=== PATIENT | male | born 1965 | race Caucasian/White ===

== ENCOUNTER → 2018-11-13 | Outpatient (CLI) | payer OTHER | LOC: LAB 15:26 | PROVIDERS: ATTEND Internal Medicine Gastroenterology | DX: R94.5 Abnormal results of liver function studies (principal) | CPT/HCPCS: 36415; 81332; 82390; 86038; 86256 ==

== ENCOUNTER 2018-11-15 07:20 | Day surgery (SDC) | payer OTHER ==
[2018-11-15] MEDS ORDERED: PROPOFOL INJ 200 MG/20 ML VIAL IV ONE ×2 (07:32→08:25)
[2018-11-15 09:08] VITALS: BP 151/95
--- NOTE | 2018-11-15 12:27 | Operative Report ---
Operative Report DATE OF SURGERY: 11/15/18 Operative Report: The risks, benefits and alternatives of the procedure including the risk of bleeding, perforation requiring surgery have been explained to the patient in detail and informed consent has been obtained. The patient is taken back to the endoscopy suite and placed in the left, lateral decubital position. Timeout was called. Propofol medication is administered. Rectal examination is done which did not reveal any masses, tears or fissures. An Olympus videoscope was inserted into the patient's rectum. Scope was then advanced all the way to the cecum. Cecum was identified by the usual anatomical landmarks including the ileocecal valve as well as appendiceal office. Photodocumentation is obtained. Scope was then sequentially pulled back via the various segments of the colon including the ascending colon, hepatic flexure, transverse colon, splenic flexure, descending colon finding to the rectosigmoid portions of the colon. Retroflexion maneuvers performed. PREOPERATIVE DIAGNOSIS: Change in bowel habits POSTOPERATIVE DIAGNOSIS: Right colon inflammation status post biopsy. Diverticulosis without any evidence of diverticulitis. Internal hemorrhoids OPERATION: Colonoscopy with biopsy SURGEON: VINEET PACHECO ANESTHESIA: LMAC TISSUE REMOVED OR ALTERED: As noted above. COMPLICATIONS: None. ESTIMATED BLOOD LOSS: None. INTRAOPERATIVE FINDINGS: As noted above. PROCEDURE: Patient tolerated the procedure well. No immediate postprocedure complications are noted. Patient is discharged in good condition. Discharge date 11/15/2018. Discharge diet: Regular. Discharge activity: Regular. 2 to 3-week follow-up to discuss findings. Patient is instructed to call the office or proceed to the emergency room should there be any further problems or questions. Wait on the pathology.
== END 2018-11-15 09:11 | disposition home or self-care (01) ==
LOC: END 07:20
PROVIDERS: ATTEND Internal Medicine Gastroenterology
DX: K52.9 Noninfective gastroenteritis and colitis, unspecified (principal); K57.30 Diverticulosis of large intestine without perforation or abscess without bleeding; K64.8 Other hemorrhoids; E03.9 Hypothyroidism, unspecified; Z79.899 Other long term (current) drug therapy; R94.5 Abnormal results of liver function studies
CPT/HCPCS: 45380; 88305 ×2; 00811; J2704; 811

== ENCOUNTER 2020-02-17 18:38 | Emergency (ER) | payer OTHER ==
[2020-02-17 19:23] LABS: ABSOLUTE LYMPHOCYTES (AUTO) 1.4 10^3/uL (0.5-4.7); ABSOLUTE MONOCYTES (AUTO) 0.5 10^3/uL (0.1-1.4); ABSOLUTE NEUT (AUTO) 2.4 10^3/uL (1.7-8.2); BASOPHILS % (AUTO) 1.1 % (0-2); EOSINOPHILS % (AUTO) 0.5 % (0-6); HEMATOCRIT 40.8 % (37.9-51.0); HEMOGLOBIN 14.1 g/dL (13.5-17.0); LYMPHOCYTES % (AUTO) 32.2 % (13-45); MEAN CORPUSCULAR HEMOGLOBIN 32.4 pg (27.0-33.4); MEAN CORPUSCULAR HGB CONC 34.5 g/dL (32.0-36.0); MEAN CORPUSCULAR VOLUME 94 fl (80-97); MONOCYTES % (AUTO) 11.4 % (3-13); RED BLOOD COUNT 4.36 10^6/uL (4.35-5.55); SEGMENTED NEUTROPHILS % (AUTO) 54.8 % (42-78); TOTAL CELLS COUNTED % (AUTO) 100 %; WHITE BLOOD COUNT 4.4 10^3/uL (4.0-10.5)
[2020-02-17 19:40] LABS: ALBUMIN 4.5 g/dL (3.5-5.0); ALKALINE PHOSPHATASE 80 U/L (38-126); ANION GAP 16 (5-19); ASPARTATE AMINO TRANSFERASE 284 U/L (17-59); BILIRUBIN,DIRECT 0.4 mg/dL (0.0-0.4); BILIRUBIN,TOTAL 1.8 mg/dL (0.2-1.3); BLOOD UREA NITROGEN 14 mg/dL (7-20); CALCIUM 8.6 mg/dL (8.4-10.2); CARBON DIOXIDE 25 mmol/L (22-30); CHLORIDE 104 mmol/L (98-107); GLUCOSE 99 mg/dL (75-110); POTASSIUM 4.4 mmol/L (3.6-5.0); TOTAL PROTEIN 7.9 g/dL (6.3-8.2)
--- NOTE | 2020-02-17 19:41 | ER Document Report ---
ED General - General Chief Complaint: Psych Problem Stated Complaint: PSYCH PROBLEM Time Seen by Provider: 02/17/20 19:40 Primary Care Provider: CAMILLA TIJERINA PA-C [Primary Care Provider] - Follow up as needed TRAVEL OUTSIDE OF THE [place] IN LAST 30 DAYS: No - HPI Notes: 54-year-old male presents under IVC, taken out by his mother. There is concern for noncompliance with medications, alcohol abuse, and suicidal ideations. Apparently has access to weapons at home and is hallucinating/speaking to soldiers. Patient denies the statements made in the IVC. He states that "I was at my house doing nothing and the career technical education teacher showed up". He states that he has not drank today, he last drink yesterday, he states that he does not go through alcohol withdrawal. Patient with limited participation. - Related Data Allergies/Adverse Reactions: No Known Allergies Allergy (Verified 11/15/18 07:05) Past Medical History - General Information source: Patient - Social History Smoking Status: Never Smoker Chew tobacco use (# tins/day): No Frequency of alcohol use: Heavy Family History: Reviewed & Not Pertinent Patient has homicidal ideation: No - Past Medical History Cardiac Medical History: Denies: Hx Coronary Artery Disease, Hx Heart Attack, Hx Hypertension Pulmonary Medical History: Denies: Hx Asthma, Hx Bronchitis, Hx COPD, Hx Pneumonia Neurological Medical History: Denies: Hx Cerebrovascular Accident, Hx Seizures Musculoskeletal Medical History: Denies Hx Arthritis - Immunizations Hx Diphtheria, Pertussis, Tetanus Vaccination: Yes Review of Systems - Review of Systems Constitutional: No symptoms reported EENT: No symptoms reported Cardiovascular: No symptoms reported Respiratory: No symptoms reported Gastrointestinal: No symptoms reported Genitourinary: No symptoms reported Male Genitourinary: No symptoms reported Musculoskeletal: No symptoms reported Skin: No symptoms reported Hematologic/Lymphatic: No symptoms reported Neurological/Psychological: See HPI Physical Exam - Vital signs Vitals: Temp Pulse Resp BP Pulse Ox 99.2 F 102 H 20 133/90 H 96 02/17/20 19:07 02/17/20 19:07 02/17/20 19:07 02/17/20 19:07 02/17/20 19:07 - General General appearance: Alert In distress: None - HEENT Head: Normocephalic, Atraumatic Extraocular movements intact: Yes Pupils: PERRL - Respiratory Breath sounds: Normal - Cardiovascular Rhythm: Regular Heart sounds: Normal auscultation - Abdominal Tenderness: Nontender - Extremities General upper extremity: Normal ROM General lower extremity: Normal ROM - Neurological Neuro grossly intact: Yes Cognition: Normal Orientation: AAOx4 Notes: Ambulatory with steady gait - Psychological Associated symptoms: Agitated, Labile, Other - Appears to be responding to internal stimuli - Skin Skin Temperature: Warm Course - Re-evaluation Re-evalutation: 54-year-old male presents under IVC taken out by his mother for SI, access to weapons and concern for hallucinations. On exam patient is quite agitated and labile, he appears of poor insight into his condition, he is currently denying the statements made in the IV see. He does appear to be responding to internal stimuli as he is. When seen talking to himself while looking towards the right corner of the room. He has no gross focal neuro deficits, he is hemodynamically stable. His given age dose of Zyprexa to help with agitation as we are currently out of Haldol. Laboratory evaluation essentially significant for elevated alcohol 425. 02/18/20 00:02 Patient is much less agitated, he is now redirectable and has remained out of restraints for over an hour. Will keep in the emergency department overnight until he can be seen by behavioral health in the morning for further management of the IVC, he is medically cleared. - Vital Signs Vital signs: Temp Pulse Resp BP Pulse Ox 99.2 F 102 H 20 133/90 H 96 02/17/20 19:07 02/17/20 19:07 02/17/20 19:07 02/17/20 19:07 02/17/20 19:07 - Laboratory Results Result Diagrams: 02/17/20 19:02 02/17/20 19:02 Laboratory Results Interpreted: 02/17/20 02/17/20 02/17/20 19:02 19:02 20:33 RDW 19.0 H Plt Count 82 L Total Bilirubin 1.8 H AST 284 H ALT 152 H Urine Protein 100 H Urine Blood SMALL H Urine Urobilinogen 4.0 H Salicylates < 1.0 L Acetaminophen < 10 L Serum Alcohol 425 H* Critical Laboratory Results Reviewed: Yes Attending or Supervising Physician who Reviewed Labs: KATIANA HARRIS - Radiology Results Critical Radiology Results Reviewed: No Critical Results - EKG Interpretation by Me Additional EKG results interpreted by me: EKG is interpreted by me. Sinus tachycardia, rate 110. Narrow QRS, QTC within normal limits. Nonspecific ST abnormalities. No STEMI. Discharge - Discharge Clinical Impression: Alcohol abuse with intoxication, Involuntary commitment Disposition: OTHER Referrals: CAIMLLA TIJERINA PA-C [Primary Care Provider] - Follow up as needed
[2020-02-17 19:42] LABS: PLATELET COUNT 82 10^3/uL (150-450)
[2020-02-17 19:51] LABS: ACETAMINOPHEN < 10 ug/mL (10-30); SALICYLATE < 1.0 mg/dL (2.0-20.0)
[2020-02-17 19:52] LABS: ALCOHOL 425 mg/dL (NONE DETECTED)
[2020-02-17] MEDS ORDERED: DIAZEPAM 5 MG TABLET PO ONE (19:52)
[2020-02-17] MEDS ORDERED: OLANZAPINE INJ/PF 10 MG SDV IM ONE (20:03)
[2020-02-17 20:41] LABS: FREE T4 (FREE THYROXINE) 0.97 ng/dL (0.78-2.19)
[2020-02-17 20:52] LABS: APPEARANCE,URINE CLEAR; BILIRUBIN,URINE NEGATIVE (NEGATIVE); COLOR,URINE YELLOW; GLUCOSE, URINE NEGATIVE (NEGATIVE); KETONES,URINE NEGATIVE (NEGATIVE); LEUKOCYTE ESTERASE,URINE NEGATIVE (NEGATIVE); NITRITE,URINE NEGATIVE (NEGATIVE); PROTEIN,URINE 100 mg/dL (NEGATIVE); URINE SPECIFIC GRAVITY 1.013
[2020-02-17 20:55] LABS: THYROID STIMULATING HORMONE 3.62 uIU/mL (0.47-4.68)
[2020-02-17 21:05] LABS: URINE AMPHETAMINES SCREEN NEGATIVE; URINE BARBITURATES SCREEN NEGATIVE; URINE COCAINE SCREEN NEGATIVE; URINE MARIJUANA (THC) SCREEN NEGATIVE; URINE METHADONE SCREEN NEGATIVE; URINE PHENCYCLIDINE SCREEN NEGATIVE
[2020-02-17 21:14] LABS: URINE BENZODIAZEPINES SCREEN UNCONFIRMED POSITIVE
[2020-02-17] MEDS ORDERED: LORAZEPAM INJ 2 MG/1 ML VIAL IM ONE (21:42)
[2020-02-18] MEDS ORDERED: MELATONIN 5 MG TABLET PO ONE (00:11)
--- NOTE | 2020-02-18 00:44 | EKG REPORT ---
SEVERITY:- BORDERLINE ECG - SINUS TACHYCARDIA BORDERLINE T ABNORMALITIES, LATERAL LEADS : Confirmed by: Traci Silva 18-Feb-2020 00:43:16
--- NOTE | 2020-02-18 15:20 | ER Document Report ---
Doctor's Note Notes: 02/18/20 15:10 Patient is cleared from psychiatric services. They are rescinding IVC paperwork as he does not meet criteria with passive SI while intoxicated with alcohol. [facility] and the patient has an appointment next month. Resources provided for alcohol abuse and outpatient treatment. Mother informed and she is onboard with the plan and will come pick up operator the patient. Patient evaluated and he has no complaints at this time, including chest pain and shortness of breath. PHYSICAL EXAMINATION: GENERAL: Well-appearing, well-nourished and in no acute distress. HEAD: Atraumatic, normocephalic. EYES: sclera anicteric, conjunctiva are normal. ENT: Moist mucous membranes. NECK: Normal range of motion LUNGS: Normal work of breathing HEART: 2+ radial pulses bilaterally EXTREMITIES: no pitting or edema. No cyanosis. NEUROLOGICAL: No focal neurological deficits. Moves all extremities spon taneously and on command. Ambulating without difficulty. PSYCH: Normal mood, normal affect. SKIN: Warm, Dry, normal turgor, no rashes or lesions noted. Patient understands and is in agreement with the plan set by psych. Patient is clinically sober at this time and safe for discharge. Patient is cleared both medically and by psych. Patient will be discharged home.
[2020-02-18 15:57] VITALS: BP 160/88
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
== END 2020-02-18 15:56 | disposition home or self-care (01) ==
LOC: ER 18:38
DX: Z04.6 Encounter for general psychiatric examination, requested by authority (principal); F10.229 Alcohol dependence with intoxication, unspecified; Y90.8 Blood alcohol level of 240 mg/100 ml or more; R45.851 Suicidal ideations; R45.1 Restlessness and agitation; F43.10 Post-traumatic stress disorder, unspecified; E03.9 Hypothyroidism, unspecified; G47.00 Insomnia, unspecified; Z79.899 Other long term (current) drug therapy; Z78.1 Physical restraint status
CPT/HCPCS: 93005; 99285; 96372; 36415; 84439; 80307 ×4; 84443; 85025; 80053; 81001; 93010; J2060; J3490

== ENCOUNTER 2020-03-03 00:13 | Inpatient (IN) | payer OTHER ==
[2020-03-03] MEDS ORDERED: LORAZEPAM INJ 2 MG/1 ML VIAL IV ONE ×2 (00:23→03:54)
--- NOTE | 2020-03-03 00:28 | ER Document Report ---
ED General - General Chief Complaint: Seizure Stated Complaint: Alcohol withdrawal, seizure Time Seen by Provider: 03/03/20 00:18 Notes: Patient is a 54-year-old male who comes in the emergency department for chief complaint of a seizure that happened just prior to arrival. This happened for an unknown duration, patient states his mom called EMS. EMS noted patient to be postictal but patient had completed seizing by then. Patient denies ever having a seizure in the past. Patient states he did stop drinking alcohol 1.5 days ago, he states he has been having nausea, sweating, and bad tremors today. Patient takes an antidepressant and medication for insomnia, denies any other medical history. Patient denies recreational drugs or substance abuse other than heavy alcohol use. TRAVEL OUTSIDE OF THE [place] IN LAST 30 DAYS: No - Related Data Allergies/Adverse Reactions: No Known Allergies Allergy (Verified 11/15/18 07:05) Past Medical History - General Information source: Patient - Social History Smoking Status: Current Every Day Smoker Frequency of alcohol use: Heavy Drug Abuse: None Lives with: Parents Family History: Reviewed & Not Pertinent - Past Medical History Cardiac Medical History: Denies: Hx Coronary Artery Disease, Hx Heart Attack, Hx Hypertension Pulmonary Medical History: Denies: Hx Asthma, Hx Bronchitis, Hx COPD, Hx Pneumonia Neurological Medical History: Denies: Hx Cerebrovascular Accident, Hx Seizures Musculoskeletal Medical History: Denies Hx Arthritis Psychiatric Medical History: Reports: Hx Anxiety, Hx Depression - Immunizations Hx Diphtheria, Pertussis, Tetanus Vaccination: Yes Review of Systems - Review of Systems Constitutional: See HPI EENT: No symptoms reported Cardiovascular: No symptoms reported Respiratory: No symptoms reported Gastrointestinal: See HPI Genitourinary: No symptoms reported Male Genitourinary: No symptoms reported Musculoskeletal: See HPI Skin: No symptoms reported Hematologic/Lymphatic: No symptoms reported Neurological/Psychological: See HPI Physical Exam - Vital signs Vitals: Temp BP Pulse Ox 99.4 F 138/95 H 95 03/03/20 00:21 03/03/20 00:21 03/03/20 00:21 - Notes Notes: GENERAL: Alert, interacts well. Somewhat unwell appearing but does not appear to be in distress HEAD: Normocephalic, atraumatic. EYES: Pupils equal, round, and reactive to light. Extraocular movements intact. ENT: Oral mucosa moist, tongue midline. There appears to be injury to the right distal aspect of the tongue consistent with bruising/tiny amount of dried blood. Oropharynx unremarkable. Airway patent. NECK: Full range of motion. Supple. Trachea midline. No lymphadenopathy. LUNGS: Clear to auscultation bilaterally, no wheezes, rales, or rhonchi. No respiratory distress. Non-tender chest wall. HEART: Regular rate and rhythm. No murmur ABDOMEN: Soft, non-tender. Non-distended. Bowel sounds present in all 4 quadrants. GENITOURINARY: Deferred EXTREMITIES: Moves all 4 extremities spontaneously. No edema, normal radial and dorsalis pedis pulses bilaterally. No cyanosis. BACK: no cervical, thoracic, lumbar midline tenderness. No saddle anesthesia, normal distal neurovascular exam. Moves all extremities in full range of motion. NEUROLOGICAL: Alert and oriented x3. Shaky speech. Patient very tremulous in both lips and extremities. Cranial nerves II through XII grossly intact. Strength 5/5 in all extremities. PSYCH: Slightly anxious but cooperative SKIN: Pale and slightly diaphoretic Course - Re-evaluation Re-evalutation: 03/03/20 00:26 Patient is very tremulous on exam, patient has injury to the right distal aspect of the tongue consistent with injury during a tonic-clonic seizure, patient is not postictal now but was reported to be so by EMS. Placing on monitoring, placing seizure precautions, giving Ativan, work-up pending. 03/03/20 00:51 Patient significantly improved after 2 mg IV Ativan, tremors have stopped, he is conversational and awake but resting comfortably. CBC shows leukopenia, thrombocytopenia. Chemistry shows elevated LFTs but borderline lipase and borderline bilirubin. Abdomen is nontender on my exam. CT of the head unremarkable. Alcohol negative. Drug screen still pending. Sodium in the 130s. I reevaluated patient. Patient started become tremulous again. I spoke with patient. Patient states that he wants to perform detox, he states he is trying to get clean for his girlfriend, he states that he would be interested in being placed in detox. However I am concerned because patient had a seizure, we called and spoke with [facility], they state they will not accept patient who has had a seizure from alcohol withdrawals until they have been free of this at least 24 hours. Patient has been discussed with Dr. Arthur. Discussed with hospitalist for admission. Patient states full agreement with the plan. I discussed with Dr. Haile, patient accepted to [facility]. - Vital Signs Vital signs: Temp Pulse Resp BP Pulse Ox 100.9 F H 101 H 20 130/84 H 98 03/03/20 05:26 03/03/20 05:26 03/03/20 05:26 03/03/20 05:26 03/03/20 05:26 - Laboratory Results Result Diagrams: 03/03/20 00:45 03/03/20 00:45 Laboratory Results Interpreted: 03/03/20 03/03/20 00:45 00:45 WBC 2.3 L RDW 18.1 H Plt Count 85 L Seg Neuts % (Manual) 80 H Lymphocytes % (Manual) 7 L Abs Lymphs (Manual) 0.2 L Sodium 136.3 L Glucose 146 H Total Bilirubin 1.5 H Direct Bilirubin 0.5 H AST 434 H ALT 199 H Lipase 500.0 H Critical Laboratory Results Reviewed: No Critical Results - Radiology Results Critical Radiology Results Reviewed: No Critical Results - EKG Interpretation by Me Additional EKG results interpreted by me: EKG shows sinus rhythm at a rate of 98, normal axis, flattened T waves laterally but no T wave inversions ST segment changes in consecutive leads. QTc 476. Discharge - Discharge Clinical Impression: Seizure, Coarse tremors Alcohol withdrawal Qualifiers: Complication of substance-induced condition: with unspecified complication Qualified Code(s): F10.239 - Alcohol dependence with withdrawal, unspecified Condition: Fair Disposition: ADMITTED INPATIENT Admitting Provider: Unit Admitted: [facility]
[2020-03-03 01:00] LABS: HEMATOCRIT 42.3 % (37.9-51.0); HEMOGLOBIN 14.8 g/dL (13.5-17.0); MEAN CORPUSCULAR HEMOGLOBIN 32.8 pg (27.0-33.4); MEAN CORPUSCULAR HGB CONC 34.9 g/dL (32.0-36.0); MEAN CORPUSCULAR VOLUME 94 fl (80-97); RED CELL DISTRIBUTION WIDTH 18.1 % (11.5-14.0); WHITE BLOOD COUNT 2.3 10^3/uL (4.0-10.5)
[2020-03-03 01:04] LABS: PLATELET COUNT 85 10^3/uL (150-450)
[2020-03-03 01:18] LABS: ABSOLUTE LYMPHOCYTES# (MANUAL) 0.2 10^3/uL (0.5-4.7); ABSOLUTE MONOCYTES # (MANUAL) 0.3 10^3/uL (0.1-1.4); BASOPHILS % (MANUAL) 0 % (0-2); EOSINOPHILS % (MANUAL) 0 % (0-6); LYMPHOCYTES % (MANUAL) 7 % (13-45); MONOCYTES % (MANUAL) 12 % (3-13); SEGMENTED NEUTROPHILS % (MAN) 80 % (42-78); TOTAL CELLS COUNTED 100
[2020-03-03 01:20] LABS: ANISOCYTOSIS 2+; PLATELET COMMENT DECREASED; TOXIC VACUOLATION PRESENT
[2020-03-03 01:21] LABS: ALBUMIN 4.1 g/dL (3.5-5.0); ALKALINE PHOSPHATASE 114 U/L (38-126); ANION GAP 11 (5-19); ASPARTATE AMINO TRANSFERASE 434 U/L (17-59); BILIRUBIN,DIRECT 0.5 mg/dL (0.0-0.4); BILIRUBIN,TOTAL 1.5 mg/dL (0.2-1.3); BLOOD UREA NITROGEN 13 mg/dL (7-20); CALCIUM 9.1 mg/dL (8.4-10.2); CARBON DIOXIDE 25 mmol/L (22-30); CHLORIDE 100 mmol/L (98-107); GLUCOSE 146 mg/dL (75-110); POTASSIUM 4.1 mmol/L (3.6-5.0); TOTAL PROTEIN 7.7 g/dL (6.3-8.2)
[2020-03-03 01:27] LABS: ALCOHOL < 10 mg/dL (NONE DETECTED)
--- NOTE | 2020-03-03 01:53 | RADIOLOGY REPORT (SQ) ---
CLINICAL HISTORY: 1st time seizure; Heavy drinker stopped drinking appx 1.5 days ago COMPARISON: None. TECHNIQUE: CT HEAD WITHOUT IV CONTRAST on 03/03/2020 12:23 AM DRAPERY CUTTER This exam was performed according to our departmental dose-optimization program, which includes automated exposure control, adjustment of the mA and/or kV according to patient size and/or use of iterative reconstruction technique. FINDINGS: There is no acute hemorrhage, mass effect or midline shift. Gee-white differentiation is preserved. There is no hydrocephalus. There is no significant volume loss for age. The calvarium is intact. Orbits and globes are unremarkable. There is mild thickening of the left maxillary sinus. Mastoid air cells are clear. IMPRESSION: No acute intracranial findings.
[2020-03-03] MEDS ORDERED: THIAMINE HCL 100 MG in NORMAL SALINE 50 ML IV ONE (04:41)
--- NOTE | 2020-03-03 04:58 | RADIOLOGY REPORT (SQ) ---
EXAM DESCRIPTION: XR CHEST 1 VIEW COMPLETED DATE/TME: 03/03/2020 04:18 CLINICAL HISTORY: 54 years, Male, post seizure COMPARISON: None. NUMBER OF VIEWS: 1 TECHNIQUE: Portable chest LIMITATIONS: None. FINDINGS: The heart size is normal. Lungs are clear. No pneumothorax. Postsurgical change of the cervical spine IMPRESSION: No acute cardiopulmonary process copyright 2011 [employer]- All Rights Reserved
[2020-03-03 05:00] LABS: APPEARANCE,URINE SLIGHTLY-CLOUDY; BILIRUBIN,URINE NEGATIVE (NEGATIVE); GLUCOSE, URINE NEGATIVE (NEGATIVE); KETONES,URINE TRACE mg/dL (NEGATIVE); LEUKOCYTE ESTERASE,URINE NEGATIVE (NEGATIVE); NITRITE,URINE NEGATIVE (NEGATIVE); PROTEIN,URINE 100 mg/dL (NEGATIVE); URINE SPECIFIC GRAVITY 1.026
[2020-03-03 05:00] LABS: INTERNATIONAL RATION (INR) 1.03; PROTHROMBIN TIME 13.7 SEC (11.4-15.4)
[2020-03-03 05:05] LABS: COLOR,URINE DARK YELLOW
[2020-03-03 05:09] LABS: URINE AMPHETAMINES SCREEN NEGATIVE; URINE BARBITURATES SCREEN NEGATIVE; URINE COCAINE SCREEN NEGATIVE; URINE MARIJUANA (THC) SCREEN NEGATIVE; URINE METHADONE SCREEN NEGATIVE; URINE PHENCYCLIDINE SCREEN NEGATIVE
[2020-03-03] MEDS ORDERED: THIAMINE HCL INJ 200 MG/2 ML VIAL ONE (05:09)
[2020-03-03 05:19] LABS: URINE BENZODIAZEPINES SCREEN UNCONFIRMED POSITIVE
[2020-03-03] MEDS: LORAZEPAM 1 MG TABLET PO SCH ×3 (05:46→21:32)
--- NOTE | 2020-03-03 05:58 | PDOC H&P ---
History of Present Illness Admission Date/PCP: 03/03/20 04:07 Patient complains of: Tonic-clonic seizure History of Present Illness: DAMARIS BUTCHER is a 54 year old male The patient is suffering from severe alcohol abuse disorder. He has previous history of alcohol withdrawal but he never had seizures. He drinks beer and vodka, significant amount daily. He decided to stop drinking about 1-1/2-day ago. He experienced a seizure at home which was witnessed. He was watching TV while it happened. Patient was brought in by EMS. He had no other seizure act ivity. He was slightly agitated and very tremulous, received intravenous lorazepam. When I saw him he appeared to be slightly agitated but he was cooperative, he had significant tremor. He had sinus tachycardia. The patient has liver cirrhosis, most likely secondary to alcohol abuse. He gets easily annoyed by questions though he was cooperating. He did not have any significant abdominal pain but he may had some earlier. Past Medical History Cardiac Medical History: Reports: None Denies: Coronary Artery Disease, Myocardial Infarction, Hypertension Pulmonary Medical History: Reports: None Denies: Asthma, Bronchitis, Chronic Obstructive Pulmonary Disease (COPD), Pneumonia EENT Medical History: Reports: None Neurological Medical History: Reports: None Denies: Seizures Endocrine Medical History: Reports: None Renal/ Medical History: Reports: None GI Medical History: Reports: Cirrhosis Musculoskeltal Medical History: Denies: Arthritis Skin Medical History: Reports: None Psychiatric Medical History: Reports: Depression Traumatic Medical History: Reports: None Hematology: Reports: None Denies: Anemia Infectious Medical History: Reports: None Past Surgical History Past Surgical History: Reports: Herniorrhaphy, Other - Cervical spine surgery, knee surgery Social History Information Source: Patient Lives with: Parents Smoking Status: Current Every Day Smoker Electronic Cigarette use?: No Frequency of Alcohol Use: Heavy Hx Recreational Drug Use: No Drugs: None - Advance Directive Resuscitation Status: Full Code Family History Family History: Malignancy Parental Family History Reviewed: Yes Children Family History Reviewed: Yes Sibling(s) Family History Reviewed.: Yes - His mother has some form of cancer metastatic to bone. Medication/Allergy Home Medications: Testosterone Cypionate 1 dose IM .QWEEKLY 11/15/18 Trazodone HCl 150 mg PO QHS 11/15/18 Allergies/Adverse Reactions: No Known Allergies Allergy (Verified 11/15/18 07:05) Review of Systems Constitutional: PRESENT: weakness Eyes: ABSENT: visual disturbances Ears: ABSENT: hearing changes Cardiovascular: ABSENT: chest pain, dyspnea on exertion, edema, orthropnea, palpitations Respiratory: ABSENT: cough, hemoptysis Gastrointestinal: PRESENT: abdominal pain - Some vague abdominal pain earlier. ABSENT: coffee ground emesis, heartburn, nausea, vomiting Genitourinary: ABSENT: dysuria, hematuria Musculoskeletal: ABSENT: joint swelling Integumentary: ABSENT: rash, wounds Neurological: PRESENT: convulsions, tremor(s) Psychiatric: ABSENT: hallucinations, homidical ideation, suicidal ideation Physical Exam Vital Signs: Temp Pulse Resp BP Pulse Ox 99.4 F 16 129/95 H 96 03/03/20 00:21 03/03/20 04:30 03/03/20 04:15 03/03/20 04:30 Intake & Output 03/01/20 03/02/20 03/03/20 06:59 06:59 06:59 Weight 104.326 kg General appearance: PRESENT: mild distress Head exam: PRESENT: atraumatic, normocephalic Eye exam: PRESENT: conjunctiva pink, EOMI, PERRLA. ABSENT: scleral icterus Ear exam: PRESENT: normal external ear exam Mouth exam: PRESENT: other - Bite geovany on the right lateral side of his tongue Throat exam: ABSENT: post pharyngeal erythema Neck exam: ABSENT: carotid bruit, JVD, lymphadenopathy, thyromegaly Respiratory exam: PRESENT: clear to auscultation martin. ABSENT: rales, rhonchi, wheezes Cardiovascular exam: PRESENT: clicks, tachycardia - Heart rate in the 100-110 range, sinus tachycardia Pulses: PRESENT: normal dorsalis pedis pul Vascular exam: PRESENT: normal capillary refill GI/Abdominal exam: PRESENT: normal bowel sounds, soft. ABSENT: distended, guarding, mass, organolmegaly, rebound, tenderness Rectal exam: PRESENT: deferred Extremities exam: PRESENT: full ROM. ABSENT: calf tenderness, clubbing, pedal edema Musculoskeletal exam: PRESENT: ambulatory Neurological exam: PRESENT: alert, awake, oriented to person, oriented to place, oriented to time, oriented to situation Psychiatric exam: PRESENT: agitated - Slightly agitated but still cooperative, anxious Skin exam: PRESENT: dry, intact, warm. ABSENT: cyanosis, rash Results Laboratory Results: 03/03/20 00:45 03/03/20 00:45 03/03/20 03/03/20 03/03/20 00:45 00:45 04:15 WBC 2.3 L RBC 4.50 Hgb 14.8 Hct 42.3 MCV 94 MCH 32.8 MCHC 34.9 RDW 18.1 H Plt Count 85 L Seg Neutrophils % Not Reportable Sodium 136.3 L Potassium 4.1 Chloride 100 Carbon Dioxide 25 Anion Gap 11 BUN 13 Creatinine 0.78 Est GFR ( Amer) > 60 Glucose 146 H Calcium 9.1 Magnesium 1.7 Total Bilirubin 1.5 H AST 434 H Alkaline Phosphatase 114 Total Protein 7.7 Albumin 4.1 Lipase 500.0 H Urine Color DARK YELLOW Urine Appearance SLIGHTLY-CLOUDY Urine pH 6.0 Ur Specific [place] 1.026 Urine Protein 100 H Urine Glucose (UA) NEGATIVE Urine Ketones TRACE H Urine Blood SMALL H Urine Nitrite NEGATIVE Ur Leukocyte Esterase NEGATIVE Urine WBC (Auto) 1 Urine RBC (Auto) 4 Impressions: Head CT 03/03/20 00:23 IMPRESSION: No acute intracranial findings. Chest X-Ray 03/03/20 03:59 IMPRESSION: No acute cardiopulmonary process copyright 2011 [employer]- All Rights Reserved Assessment and Plan - Diagnosis (1) Seizure Is this a current diagnosis for this admission?: Yes Plan: The patient had a seizure, he does not remember. This is an alcohol withdrawal seizure. No antiseizure medication was started at this point. CT scan of the head is unremarkable. Continue benzodiazepines. (2) Alcohol withdrawal Qualifiers: Complication of substance-induced condition: with unspecified complication Qualified Code(s): F10.239 - Alcohol dependence with withdrawal, unspecified Is this a current diagnosis for this admission?: Yes Plan: He had an alcohol withdrawal seizure, now he has significant tremor, anxiety, mild agitation. He is not hallucinating. He has sinus tachycardia. His blood pressure is stable. He is going to be admitted to intermediate care unit because of alcohol withdrawal. He is going to be treated with lorazepam regularly scheduled and as needed. Thiamine. (3) Cirrhosis of liver Qualifiers: Hepatic cirrhosis type: alcoholic cirrhosis Ascites presence: without ascites Qualified Code(s): K70.30 - Alcoholic cirrhosis of liver without ascites Is this a current diagnosis for this admission?: Yes Plan: We do not have a definite proof but most likely has alcoholic cirrhosis. CT scan of the abdomen and pelvis going to be done this morning. He does not have any coagulopathy but he is thrombocytopenic and neutropenic. Because of thrombocytopenia DVT prophylaxis with compression device. (4) Thrombocytopenia Is this a current diagnosis for this admission?: Yes Plan: Most likely secondary to liver cirrhosis. Monitor platelet count. (5) Leukopenia Qualifiers: Leukopenia type: unspecified Qualified Code(s): D72.819 - Decreased white blood cell count, unspecified Is this a current diagnosis for this admission?: Yes Plan: Monitor CBC. Most likely due to liver cirrhosis. Check HIV serology. (7) Abdominal pain Qualifiers: Abdominal location: generalized Qualified Code(s): R10.84 - Generalized abdominal pain Is this a current diagnosis for this admission?: Yes Plan: He had earlier some abdominal pain but now he is pain-free. Abdominal exam is unremarkable. He has mild elevated lipase. I do not believe he has any significant pancreatitis. CT scan of the abdomen and pelvis in the morning. Recheck lipase. - Plan Summary Summary: Patient was admitted to intermediate care unit after a seizure which was most likely alcohol withdrawal seizure. He has alcohol withdrawal symptoms. He is still cooperative. - Time Time Spent with patient: 35 or more minutes Medications reviewed and adjusted accordingly: Yes Anticipated Discharge Disposition: Home, Self Care Anticipated Discharge Timeframe: within 72 hours - Inpatient Certification Based on my medical assessment, after consideration of the patient's comorbidities, presenting symptoms, or acuity I expect that the services needed warrant INPATIENT care.: Yes I certify that my determination is in accordance with my understanding of Medicare's requirements for reasonable and necessary INPATIENT services [42 CFR 412.3e].: Yes Medical Necessity: Failure to Improve With Outpatient Therapy, Need Close Monitoring Due to Risk of Patient Decompensation, Need for Neurological Checks
--- NOTE | 2020-03-03 07:21 | EKG REPORT ---
SEVERITY:- ABNORMAL ECG - SINUS RHYTHM FIRST DEGREE AV BLOCK NONSPECIFIC T ABNORMALITIES, LATERAL LEADS : Confirmed by: Jaya Patterson MD 03-Mar-2020 07:19:24
[2020-03-03] MEDS: ACETAMINOPHEN 325 MG TABLET PO PRN (08:46)
--- NOTE | 2020-03-03 12:21 | RADIOLOGY REPORT (SQ) ---
EXAM DESCRIPTION: CT ABD/PELVIS WITH IV ORAL IMAGES COMPLETED DATE/TIME: 03/03/2020 9:29 am REASON FOR STUDY: elevated lipase, cirrhosis. Patient reports no pain. Prior appendectomy. COMPARISON: None. TECHNIQUE: CT scan of the abdomen and pelvis performed using helical scanning technique with dynamic intravenous contrast injection. No oral contrast. Images reviewed with lung, soft tissue, and bone windows. Reconstructed coronal and sagittal MPR images reviewed. Delayed images for evaluation of the urinary system also acquired. All images stored on PACS. All CT scanners at this facility use dose modulation, iterative reconstruction, and/or weight based d osing when appropriate to reduce radiation dose to as low as reasonably achievable (ALARA). [facility]: Dose Right [facility]: CareDose [facility]: Dose Right [facility]: Teradose 4D [facility]: eFolder CONTRAST TYPE AND DOSE: contrast/concentration: Isovue 350.00 mmol/ml; Total Contrast Delivered: 100 .0 ml; Total Saline Delivered: 72.0 ml RENAL FUNCTION: GFR > 60. RADIATION DOSE: CT Rad equipment meets quality standard of care and radiation dose reduction techniq ues were employed. CTDIvol: 13.0 mGy. DLP: 1447 mGy-cm.. LIMITATIONS: None. FINDINGS: LOWER CHEST: There are patchy ground-glass and solid nodules in the medial right lower lob e which may represent rounded atelectasis or developing infectious/ inflammatory process. Ill-define d patchy opacities at the right lung base, also possibly infectious/ inflammatory versus atelectasis. LIVER: The liver has normal size and contour. There is severe diffuse hepatic steatosis. No focal h epatic mass. Hepatic and portal veins are patent. No biliary ductal dilation. SPLEEN: Normal size. No focal lesions. PANCREAS: No masses. No significant calcifications. No adjacent inflammation or peripancreatic fluid collections. Pancreatic duct not dilated. GALLBLADDER: Gallbladder is contracted. No calcified gallstones or intraluminal debris. No gallblad venice wall thickening or pericholecystic fluid. ADRENAL GLANDS: No significant masses or asymmetry. RIGHT KIDNEY AND URETER: No solid masses. No significant calcifications. No hydronephrosis or hyd roureter. LEFT KIDNEY AND URETER: No solid masses. No significant calcifications. No hydronephrosis or hydr oureter. AORTA AND VESSELS: No aneurysm. No dissection. Renal arteries, SMA, celiac without stenosis. RETROPERITONEUM: No retroperitoneal adenopathy, hemorrhage or masses. BOWEL AND PERITONEAL CAVITY: There is colonic diverticulosis without evidence of diverticulitis. No bowel obstruction. No bowel wall thickening or mass. No significant inflammatory change. APPENDIX: Surgically absent. PELVIS: No mass. No free fluid. Normal bladder. ABDOMINAL WALL: No masses. No hernias. BONES: Benign L1 vertebral body hemangioma. No suspicious bone lesions. OTHER: No other significant finding. IMPRESSION: 1. Severe hepatic steatosis. 2. Patchy ground-glass attenuation in the medial right lower lobe and left lung base may represent at electasis or developing airspace disease. Findings could be seen with Coban [address] evidence of acute pancreatitis. TECHNICAL DOCUMENTATION: JOB ID: [id number] Quality ID # [id number]: Final reports with documentation of one or more dose reduction techniques (e.g., Au tomated exposure control, adjustment of the mA and/or kV according to patient size, use of iterative reconstruction technique) 2010 [employer] All Rights Reserved Reading location - IP/workstation name: [email or web address]
--- NOTE | 2020-03-03 18:00 | PDOC PROGRESS REPORT ---
Subjective Date:: 03/03/20 Subjective:: Patient was seen and examined at bedside. According to the nurse he wanted to l eave AGAINST MEDICAL ADVICE today however he change his mind. CT abdomen showed alcoholic liver disease also revealed groundglass opacities concerning for Covid pneumonia. Patient admits he has been having on and off fever undocumented at home and cough. Covid test negative. Patient receiving as needed Ativan for withdrawal symptoms. No recurrence of seizure since admission. Reason For Visit: ALCOHOL WITHDRAWAL WITH SEIZURE Physical Exam Vital Signs: Temp Pulse Resp BP Pulse Ox 98.8 F 95 16 140/95 H 98 03/03/20 16:26 03/03/20 16:26 03/03/20 16:26 03/03/20 16:26 03/03/20 16:26 Intake & Output 03/02/20 03/03/20 03/04/20 06:59 06:59 06:59 Intake Total 120 Balance 120 Weight 98.4 kg General appearance: PRESENT: no acute distress, cooperative Head exam: PRESENT: atraumatic, normocephalic Eye exam: PRESENT: EOMI, PERRLA Mouth exam: PRESENT: moist Neck exam: PRESENT: full ROM Respiratory exam: PRESENT: clear to auscultation martin, symmetrical, unlabored Cardiovascular exam: PRESENT: RRR, +S1, +S2 Pulses: PRESENT: +2 pedal pulses bilateral GI/Abdominal exam: PRESENT: normal bowel sounds, soft. ABSENT: rebound, tenderness Extremities exam: PRESENT: full ROM Musculoskeletal exam: PRESENT: full ROM Neurological exam: PRESENT: alert, awake, oriented to person, oriented to place, oriented to time, oriented to situation Psychiatric exam: PRESENT: normal mood Skin exam: PRESENT: normal color Results Laboratory Results: 03/03/20 00:45 03/03/20 00:45 03/03/20 03/03/20 03/03/20 00:45 00:45 04:15 WBC 2.3 L RBC 4.50 Hgb 14.8 Hct 42.3 MCV 94 MCH 32.8 MCHC 34.9 RDW 18.1 H Plt Count 85 L Seg Neutrophils % Not Reportable Sodium 136.3 L Potassium 4.1 Chloride 100 Carbon Dioxide 25 Anion Gap 11 BUN 13 Creatinine 0.78 Est GFR ( Amer) > 60 Glucose 146 H Calcium 9.1 Magnesium 1.7 Total Bilirubin 1.5 H AST 434 H Alkaline Phosphatase 114 Ammonia Total Protein 7.7 Albumin 4.1 Lipase 500.0 H Urine Color DARK YELLOW Urine Appearance SLIGHTLY-CLOUDY Urine pH 6.0 Ur Specific [place] 1.026 Urine Protein 100 H Urine Glucose (UA) NEGATIVE Urine Ketones TRACE H Urine Blood SMALL H Urine Nitrite NEGATIVE Ur Leukocyte Esterase NEGATIVE Urine WBC (Auto) 1 Urine RBC (Auto) 4 03/03/20 06:48 WBC RBC Hgb Hct MCV MCH MCHC RDW Plt Count Seg Neutrophils % Sodium Potassium Chloride Carbon Dioxide Anion Gap BUN Creatinine Est GFR ( Amer) Glucose Calcium Magnesium Total Bilirubin AST Alkaline Phosphatase Ammonia 10.5 Total Protein Albumin Lipase Urine Color Urine Appearance Urine pH Ur Specific [place] Urine Protein Urine Glucose (UA) Urine Ketones Urine Blood Urine Nitrite Ur Leukocyte Esterase Urine WBC (Auto) Urine RBC (Auto) Impressions: Abdomen/Pelvis CT 03/03/20 00:00 IMPRESSION: 1. Severe hepatic steatosis. 2. Patchy ground-glass attenuation in the medial right lower lobe and left lung base may represent atelectasis or developing airspace disease. Findings could be seen with Coban [address] evidence of acute pancreatitis. Head CT 03/03/20 00:23 IMPRESSION: No acute intracranial findings. Chest X-Ray 03/03/20 03:59 IMPRESSION: No acute cardiopulmonary process copyright 2011 [employer]- All Rights Reserved Assessment and Plan - Diagnosis (1) Alcohol related seizure Is this a current diagnosis for this admission?: Yes Plan: Likely alcohol related as he tried to cut back on his alcohol consumption. -CT Head negative (2) Hepatic steatosis Is this a current diagnosis for this admission?: Yes Plan: - likely alcohol related - alcohol abstinence strongly advised (3) Alcohol withdrawal Qualifiers: Complication of substance-induced condition: with unspecified complication Qualified Code(s): F10.239 - Alcohol dependence with withdrawal, unspecified Is this a current diagnosis for this admission?: Yes Plan: - CIWA score with PRN ativan - thiamine and multivitamins. (4) Thrombocytopenia Is this a current diagnosis for this admission?: Yes Plan: Most likely secondary to liver cirrhosis. Monitor platelet count. no bleeding noted (5) Leukopenia Qualifiers: Leukopenia type: unspecified Qualified Code(s): D72.819 - Decreased white blood cell count, unspecified Is this a current diagnosis for this admission?: Yes Plan: Monitor CBC. Most likely due to liver cirrhosis. - most likely from myelosuppression from alcohol - Plan Summary Summary: . - Time Time Spent with patient: 25-34 minutes Medications reviewed and adjusted accordingly: Yes Anticipated Discharge Disposition: Home, Self Care Anticipated Discharge Timeframe: tbd
[2020-03-04] MEDS: LORAZEPAM 1 MG TABLET PO SCH (05:09)
[2020-03-04 06:01] LABS: ALBUMIN 3.8 g/dL (3.5-5.0); ALKALINE PHOSPHATASE 98 U/L (38-126); ANION GAP 12 (5-19); ASPARTATE AMINO TRANSFERASE 373 U/L (17-59); BILIRUBIN,DIRECT 0.4 mg/dL (0.0-0.4); BILIRUBIN,TOTAL 1.2 mg/dL (0.2-1.3); BLOOD UREA NITROGEN 12 mg/dL (7-20); CALCIUM 8.7 mg/dL (8.4-10.2); CARBON DIOXIDE 22 mmol/L (22-30); CHLORIDE 102 mmol/L (98-107); GLUCOSE 93 mg/dL (75-110); POTASSIUM 3.4 mmol/L (3.6-5.0); TOTAL PROTEIN 7.3 g/dL (6.3-8.2)
[2020-03-04 06:08] LABS: ABSOLUTE LYMPHOCYTES (AUTO) 0.6 10^3/uL (0.5-4.7); ABSOLUTE MONOCYTES (AUTO) 0.5 10^3/uL (0.1-1.4); ABSOLUTE NEUT (AUTO) 1.5 10^3/uL (1.7-8.2); BASOPHILS % (AUTO) 1.2 % (0-2); EOSINOPHILS % (AUTO) 0.2 % (0-6); HEMATOCRIT 41.9 % (37.9-51.0); HEMOGLOBIN 14.7 g/dL (13.5-17.0); LYMPHOCYTES % (AUTO) 22.2 % (13-45); MEAN CORPUSCULAR HEMOGLOBIN 33.2 pg (27.0-33.4); MEAN CORPUSCULAR VOLUME 95 fl (80-97); MONOCYTES % (AUTO) 18.3 % (3-13); RED BLOOD COUNT 4.42 10^6/uL (4.35-5.55); SEGMENTED NEUTROPHILS % (AUTO) 58.1 % (42-78); TOTAL CELLS COUNTED % (AUTO) 100 %; WHITE BLOOD COUNT 2.5 10^3/uL (4.0-10.5)
[2020-03-04 06:42] LABS: PLATELET COUNT 81 10^3/uL (150-450)
[2020-03-04] MEDS ORDERED: INFLUENZA QUAD (6MOS+) 2020-21 VAC 0.5 ML SYR IM ONE (08:00)
[2020-03-04] MEDS: POTASSI CL 20 MEQ/50 ML RIDER 20 MEQ/50 ML RTUPB IV SCH ×2 (09:14→12:05)
[2020-03-04] MEDS: LORAZEPAM INJ 2 MG/1 ML VIAL IV PRN ×2 (09:47→18:10)
[2020-03-04] MEDS: THIAMINE HCL 100 MG in NORMAL SALINE 50 ML IV SCH (11:19)
[2020-03-04] MEDS: ACETAMINOPHEN 325 MG TABLET PO PRN (13:18)
--- NOTE | 2020-03-04 14:15 | PDOC PROGRESS REPORT ---
Subjective Date:: 03/04/20 Subjective:: Patient was seen and examined at bedside. According to the nurse he wanted to l eave AGAINST MEDICAL ADVICE today however he change his mind. CT abdomen showed alcoholic liver disease also revealed groundglass opacities concerning for Covid pneumonia. Patient admits he has been having on and off fever undocumented at home and cough. Covid test negative. Patient receiving as needed Ativan for withdrawal symptoms. No recurrence of seizure since admission. 03/04/20 Patient was seen and examined at bedside. Denies any SOB, minimal cough. Still undergoing withdrawal and requiring PRN ativan. Again stated that he wants to go home but refuses to sign out AMA. He is COVID positive however has minimal symptoms and does not require oxygen. Reason For Visit: ALCOHOL WITHDRAWAL WITH SEIZURE Physical Exam Vital Signs: Temp Pulse Resp BP Pulse Ox 99.9 F 103 H 18 132/89 H 97 03/04/20 08:52 03/04/20 08:52 03/03/20 21:16 03/04/20 08:52 03/04/20 08:52 Intake & Output 03/03/20 03/04/20 03/05/20 06:59 06:59 06:59 Intake Total 120 50 101 Balance 120 50 101 Weight 98.4 kg 100.7 kg General appearance: PRESENT: no acute distress, cooperative, well-developed Head exam: PRESENT: atraumatic, normocephalic Eye exam: PRESENT: EOMI, PERRLA Mouth exam: PRESENT: moist Neck exam: PRESENT: full ROM Respiratory exam: PRESENT: clear to auscultation martin, symmetrical, unlabored Cardiovascular exam: PRESENT: RRR, +S1, +S2 Vascular exam: PRESENT: normal capillary refill GI/Abdominal exam: PRESENT: normal bowel sounds, soft. ABSENT: rebound, tenderness Extremities exam: PRESENT: full ROM Musculoskeletal exam: PRESENT: full ROM Neurological exam: PRESENT: alert, awake, oriented to person, oriented to place, oriented to time, oriented to situation Psychiatric exam: PRESENT: agitated, anxious Skin exam: PRESENT: normal color Results Laboratory Results: 03/04/20 04:32 03/04/20 04:32 03/04/20 03/04/20 03/04/20 04:32 04:32 04:32 WBC 2.5 L RBC 4.42 Hgb 14.7 Hct 41.9 MCV 95 MCH 33.2 MCHC 35.0 RDW 18.0 H Plt Count 81 L Seg Neutrophils % 58.1 Sodium 135.9 L Potassium 3.4 L Chloride 102 Carbon Dioxide 22 Anion Gap 12 BUN 12 Creatinine 0.83 Est GFR ( Amer) > 60 Glucose 93 Calcium 8.7 Magnesium 1.8 Total Bilirubin 1.2 AST 373 H Alkaline Phosphatase 98 Total Protein 7.3 Albumin 3.8 Lipase 469.1 H Free T3 pg/mL 4.59 Impressions: Abdomen/Pelvis CT 03/03/20 00:00 IMPRESSION: 1. Severe hepatic steatosis. 2. Patchy ground-glass attenuation in the medial right lower lobe and left lung base may represent atelectasis or developing airspace disease. Findings could be seen with Coban [address] evidence of acute pancreatitis. Head CT 03/03/20 00:23 IMPRESSION: No acute intracranial findings. Chest X-Ray 03/03/20 03:59 IMPRESSION: No acute cardiopulmonary process copyright 2011 [employer]- All Rights Reserved Assessment and Plan - Diagnosis (1) Alcohol withdrawal Qualifiers: Complication of substance-induced condition: with unspecified complication Qualified Code(s): F10.239 - Alcohol dependence with withdrawal, unspecified Is this a current diagnosis for this admission?: Yes Plan: - CIWA score with PRN ativan - thiamine and multivitamins. (2) Alcohol related seizure Is this a current diagnosis for this admission?: Yes Plan: Likely alcohol related as he tried to cut back on his alcohol consumption. -CT Head negative - continue PRN ativan for withdrawal - advised to completely abstain from alcohol (3) COVID-19 virus detected Is this a current diagnosis for this admission?: Yes Plan: - noted to have ground glass opacities on CT abdomen - minimal symptoms, not requiring O2 - started zinc, vitamin d, C and melatonin (4) Hepatic steatosis Is this a current diagnosis for this admission?: Yes Plan: - likely alcohol related - alcohol abstinence strongly advised (5) Thrombocytopenia Is this a current diagnosis for this admission?: Yes Plan: Most likely secondary to liver cirrhosis. Monitor platelet count. no bleeding noted (6) Leukopenia Qualifiers: Leukopenia type: unspecified Qualified Code(s): D72.819 - Decreased white blood cell count, unspecified Is this a current diagnosis for this admission?: Yes Plan: Monitor CBC. Most likely due to liver cirrhosis. - most likely from myelosuppression from alcohol - Time Time Spent with patient: 25-34 minutes Medications reviewed and adjusted accordingly: Yes Anticipated Discharge Disposition: Home, Self Care Anticipated Discharge Timeframe: within 48 hours
[2020-03-04] MEDS: CHOLECALCIFEROL (D3) 1,000 UNIT (25 MCG) TABLET PO SCH (14:42)
[2020-03-04] MEDS: ASCORBIC ACID 500 MG TABLET PO SCH (17:08)
--- NOTE | 2020-03-04 20:44 | CDI QUERY ---
CDI Query CDI Review: We are seeking further clarification of documentation to reflect the severity of illness of your patient. Per Progress Notes: Abdomen/Pelvis CT 03/03/20 00:00 IMPRESSION: 1. Severe hepatic steatosis. 2. Patchy ground-glass attenuation in the medial right lower lobe and left lung base may represent atelectasis or developing airspace disease. Findings could be seen with Coban [address] evidence of acute pancreatitis. COVID-19 virus detected Is this a current diagnosis for this admission?: Yes Plan: - noted to have ground glass opacities on CT abdomen - minimal symptoms, not requiring O2 - started zinc, vitamin d, C and melatonin Based on your medical judgement, can you further clarify in the Progress Notes and carry through the Discharge Summary: Covid Pneumonia Aspiration Pneumonia No pneumonia detected Unable to determine Other Thank you for your consideration. HAYLEE LamN RN Clinical Transfer Table Operator Physician Advisor [email or web address]
[2020-03-04] MEDS ORDERED: MELATONIN 5 MG TABLET PO SCH (22:00)
[2020-03-05] MEDS ORDERED: POTASSIUM CHLORIDE 20 MEQ PACKET PO ONE (09:00)
[2020-03-05] MEDS ORDERED: ZINC SULFATE 220 MG CAPSULE PO SCH (10:00)
[2020-03-05] MEDS: CHOLECALCIFEROL (D3) 1,000 UNIT (25 MCG) TABLET PO SCH (10:01)
[2020-03-05] MEDS: ASCORBIC ACID 500 MG TABLET PO SCH (10:01)
[2020-03-05] MEDS: THIAMINE HCL 100 MG in NORMAL SALINE 50 ML IV SCH (10:35)
[2020-03-05] MEDS ORDERED: IVERMECTIN 3 MG TABLET PO ONE (12:00)
[2020-03-05 12:30] VITALS: BP 130/84
--- NOTE | 2020-03-05 12:47 | PDOC DISCHARGE SUMMARY ---
Impression - Admit/DC Date/PCP Admission Date/Primary Care Provider: 03/03/20 04:07 Discharge Date: 03/05/20 - Discharge Diagnosis (1) Alcohol withdrawal Is this a current diagnosis for this admission?: Yes (2) Alcohol related seizure Is this a current diagnosis for this admission?: Yes (3) COVID-19 virus detected Is this a current diagnosis for this admission?: Yes (4) Hepatic steatosis Is this a current diagnosis for this admission?: Yes (5) Thrombocytopenia Is this a current diagnosis for this admission?: Yes (6) Leukopenia Is this a current diagnosis for this admission?: Yes (7) Pneumonia due to COVID-19 virus Is this a current diagnosis for this admission?: Yes - Assessment Summary: (1) Alcohol withdrawal Qualifiers: Complication of substance-induced condition: with unspecified complication Qualified Code(s): F10.239 - Alcohol dependence with withdrawal, unspecified Is this a current diagnosis for this admission?: Yes Plan: - CIWA score with PRN ativan - thiamine and multivitamins. (2) Alcohol related seizure Is this a current diagnosis for this admission?: Yes Plan: Likely alcohol related as he tried to cut back on his alcohol consumption. -CT Head negative - continue PRN ativan for withdrawal - advised to completely abstain from alcohol (3) COVID-19 virus detected Is this a current diagnosis for this admission?: Yes Plan: - noted to have ground glass opacities on CT abdomen - minimal symptoms, not requiring O2 - started zinc, vitamin d, C and melatonin (4) Hepatic steatosis Is this a current diagnosis for this admission?: Yes Plan: - likely alcohol related - alcohol abstinence strongly advised (5) Thrombocytopenia Is this a current diagnosis for this admission?: Yes Plan: Most likely secondary to liver cirrhosis. Monitor platelet count. no bleeding noted (6) Leukopenia Qualifiers: Leukopenia type: unspecified Qualified Code(s): D72.819 - Decreased white blood cell count, unspecified Is this a current diagnosis for this admission?: Yes Plan: Monitor CBC. Most likely due to liver cirrhosis. - most likely from myelosuppression from alcohol COVID 19 Pneumonia Not requiring Oxygen, supportive management only - Additional Information Resuscitation Status: Full Code Discharge Diet: As Tolerated Discharge Activity: Activity As Tolerated Referrals: CAMILLA TIJERINA PA-C [NO LOCAL MD] - Follow up as needed Prescriptions: Aspirin [Aspirin 81 mg Chewable Tablet] 81 mg PO DAILY 30 Days #30 tab.chew Ivermectin [Stromectol 3 Mg Tablet] 30 mg PO ONCE PRN 1 Days #10 tablet PRN Reason: Ascorbic Acid [Vitamin C 500 mg Tablet] 500 mg PO BID 30 Days #60 tablet Cholecalciferol (Vitamin D3) [Vitamin D3 1000 Unit Tablet] 2,000 unit PO DAILY 30 Days #30 tablet Zinc Sulfate [Zinc-220 Capsule] 220 mg PO DAILY 30 Days #30 capsule Home Medications: Trazodone HCl 150 mg PO QHS 11/15/18 Ascorbic Acid [Vitamin C 500 mg Tablet] 500 mg PO BID 30 Days #60 tablet 03/05/20 Aspirin [Aspirin 81 mg Chewable Tablet] 81 mg PO DAILY 30 Days #30 tab.chew 03/05/20 Cholecalciferol (Vitamin D3) [Vitamin D3 1000 Unit Tablet] 2,000 unit PO DAILY 30 Days #30 tablet 03/05/20 Ivermectin [Stromectol 3 Mg Tablet] 30 mg PO ONCE PRN 1 Days #10 tablet 03/05/20 Zinc Sulfate [Zinc-220 Capsule] 220 mg PO DAILY 30 Days #30 capsule 03/05/20 History of Present Illiness History of Present Illness: DAMARIS BUTCHER is a 54 year old male, He has previous history of alcohol withdrawal but he never had seizures. He drinks beer and vodka, significant amount daily. He decided to stop drinking about 1-1/2-day ago. He experienced a seizure at home which was witnessed. He was watching TV while it happened. Patient was brought in by EMS. He had no other seizure activity. He was slightly agitated and very tremulous, received intravenous lorazepam. When I saw him he appeared to be slightly agitated but he was cooperative, he had significant tremor. He had sinus tachycardia. The patient has liver cirrhosis, most likely secondary to alcohol abuse. He gets easily annoyed by questions though he was cooperating. He did not have any significant abdominal pain but he may had some earlier. Hospital Course Hospital Course: 03/03/20 Patient was seen and examined at bedside. According to the nurse he wanted to leave AGAINST MEDICAL ADVICE today however he change his mind. CT abdomen showed alcoholic liver disease also revealed groundglass opacities concerning for Covid pneumonia. Patient admits he has been having on and off fever undocumented at home and cough. Covid test negative. Patient receiving as needed Ativan for withdrawal symptoms. No recurrence of seizure since admission. 03/04/20 Patient was seen and examined at bedside. Denies any SOB, minimal cough. Still undergoing withdrawal and requiring PRN ativan. Again stated that he wants to go home but refuses to sign out AMA. He is COVID positive however has minimal symptoms and does not require oxygen. 03/05/20 Patient was seen and examined at bedside. He had an uneventful night, no further seizure episode and he only required 2 mg of IV ativan. He is not requiring O2 and is not short of breath. Patient was eventually discharged and was advised to isolate himself for 14 more days. Physical Exam Vital Signs: Temp Pulse Resp BP Pulse Ox 99.2 F 82 16 130/84 H 97 03/05/20 12:28 03/05/20 12:28 03/05/20 12:28 03/05/20 12:28 03/05/20 12:28 Intake & Output 03/04/20 03/05/20 03/06/20 06:59 06:59 06:59 Intake Total 50 910 51 Output Total 100 Balance 50 810 51 Weight 100.7 kg 99.9 kg General appearance: PRESENT: no acute distress, cooperative Head exam: PRESENT: atraumatic, normocephalic Eye exam: PRESENT: EOMI, PERRLA Mouth exam: PRESENT: moist Neck exam: PRESENT: full ROM Respiratory exam: PRESENT: clear to auscultation mratin, symmetrical, unlabored Cardiovascular exam: PRESENT: RRR, +S1, +S2 Pulses: PRESENT: +2 pedal pulses bilateral GI/Abdominal exam: PRESENT: normal bowel sounds, soft. ABSENT: rebound, tenderness Extremities exam: PRESENT: full ROM Musculoskeletal exam: PRESENT: full ROM Neurological exam: PRESENT: alert, awake, oriented to person, oriented to place, oriented to time, oriented to situation Psychiatric exam: PRESENT: normal mood Skin exam: PRESENT: normal color Results Laboratory Results: WBC 2.5 10^3/uL (4.0-10.5) L 03/04/20 04:32 RBC 4.42 10^6/uL (4.35-5.55) 03/04/20 04:32 Hgb 14.7 g/dL (13.5-17.0) 03/04/20 04:32 Hct 41.9 % (37.9-51.0) 03/04/20 04:32 MCV 95 fl (80-97) 03/04/20 04:32 MCH 33.2 pg (27.0-33.4) 03/04/20 04:32 MCHC 35.0 g/dL (32.0-36.0) 03/04/20 04:32 RDW 18.0 % (11.5-14.0) H 03/04/20 04:32 Plt Count 81 10^3/uL (150-450) L 03/04/20 04:32 Lymph % (Auto) 22.2 % (13-45) 03/04/20 04:32 [place] % (Auto) 18.3 % (3-13) H 03/04/20 04:32 Eos % (Auto) 0.2 % (0-6) 03/04/20 04:32 Baso % (Auto) 1.2 % (0-2) 03/04/20 04:32 Absolute Neuts (auto) 1.5 10^3/uL (1.7-8.2) L 03/04/20 04:32 Absolute Lymphs (auto) 0.6 10^3/uL (0.5-4.7) 03/04/20 04:32 Absolute Monos (auto) 0.5 10^3/uL (0.1-1.4) 03/04/20 04:32 Absolute Eos (auto) 0.0 10^3/uL (0.0-0.6) 03/04/20 04:32 Absolute Basos (auto) 0.0 10^3/uL (0.0-0.2) 03/04/20 04:32 Total Counted 100 03/03/20 00:45 Seg Neutrophils % 58.1 % (42-78) 03/04/20 04:32 Seg Neuts % (Manual) 80 % (42-78) H 03/03/20 00:45 Lymphocytes % (Manual) 7 % (13-45) L 03/03/20 00:45 Atypical Lymphs % 1 % (0) 03/03/20 00:45 Monocytes % (Manual) 12 % (3-13) 03/03/20 00:45 Eosinophils % (Manual) 0 % (0-6) 03/03/20 00:45 Basophils % (Manual) 0 % (0-2) 03/03/20 00:45 Abs Neuts (Manual) 1.8 10^3/uL (1.7-8.2) 03/03/20 00:45 Abs Lymphs (Manual) 0.2 10^3/uL (0.5-4.7) L 03/03/20 00:45 Abs Monocytes (Manual) 0.3 10^3/uL (0.1-1.4) 03/03/20 00:45 Absolute Eos (Manual) 0.0 10^3/uL (0.0-0.6) 03/03/20 00:45 Abs Basophils (Manual) 0.0 10^3/uL (0.0-0.2) 03/03/20 00:45 Toxic Vacuolation PRESENT 03/03/20 00:45 Platelet Comment DECREASED 03/03/20 00:45 Anisocytosis 2+ 03/03/20 00:45 PT 13.7 SEC (11.4-15.4) 03/03/20 04:47 INR 1.03 03/03/20 04:47 Sodium 135.9 mmol/L (137-145) L 03/04/20 04:32 Potassium 3.4 mmol/L (3.6-5.0) L 03/04/20 04:32 Chloride 102 mmol/L (98-107) 03/04/20 04:32 Carbon Dioxide 22 mmol/L (22-30) 03/04/20 04:32 Anion Gap 12 (5-19) 03/04/20 04:32 BUN 12 mg/dL (7-20) 03/04/20 04:32 Creatinine 0.83 mg/dL (0.52-1.25) 03/04/20 04:32 Est GFR ( Amer) > 60 (>60) 03/04/20 04:32 Est GFR (MDRD) Non-Af > 60 (>60) 03/04/20 04:32 Glucose 93 mg/dL (75-110) 03/04/20 04:32 Hemoglobin A1c % 4.6 % (4.7-6.0) L 03/04/20 04:32 Calcium 8.7 mg/dL (8.4-10.2) 03/04/20 04:32 Magnesium 1.8 mg/dL (1.6-2.3) 03/04/20 04:32 Total Bilirubin 1.2 mg/dL (0.2-1.3) 03/04/20 04:32 Direct Bilirubin 0.4 mg/dL (0.0-0.4) 03/04/20 04:32 Neonat Total Bilirubin Not Reportable 03/04/20 04:32 Neonat Direct Bilirubin Not Reportable 03/04/20 04:32 Neonat Indirect Bili Not Reportable 03/04/20 04:32 AST 373 U/L (17-59) H 03/04/20 04:32 ALT 195 U/L (<50) H 03/04/20 04:32 Alkaline Phosphatase 98 U/L (38-126) 03/04/20 04:32 Ammonia 10.5 umol/L (9-33) 03/03/20 06:48 Total Protein 7.3 g/dL (6.3-8.2) 03/04/20 04:32 Albumin 3.8 g/dL (3.5-5.0) 03/04/20 04:32 Lipase 469.1 U/L (23-300) H 03/04/20 04:32 Free T3 pg/mL 4.59 pg/mL (2.77-5.27) 03/04/20 04:32 Urine Color DARK YELLOW 03/03/20 04:15 Urine Appearance SLIGHTLY-CLOUDY 03/03/20 04:15 Urine pH 6.0 (5.0-9.0) 03/03/20 04:15 Ur Specific [place] 1.026 03/03/20 04:15 Urine Protein 100 mg/dL (NEGATIVE) H 03/03/20 04:15 Urine Glucose (UA) NEGATIVE mg/dL (NEGATIVE) 03/03/20 04:15 Urine Ketones TRACE mg/dL (NEGATIVE) H 03/03/20 04:15 Urine Blood SMALL (NEGATIVE) H 03/03/20 04:15 Urine Nitrite NEGATIVE (NEGATIVE) 03/03/20 04:15 Urine Bilirubin NEGATIVE (NEGATIVE) 03/03/20 04:15 Urine Urobilinogen 4.0 mg/dL (<2.0) H 03/03/20 04:15 Ur Leukocyte Esterase NEGATIVE (NEGATIVE) 03/03/20 04:15 Urine WBC (Auto) 1 /HPF 03/03/20 04:15 Urine RBC (Auto) 4 /HPF 03/03/20 04:15 U Hyaline Cast (Auto) 13 /LPF 03/03/20 04:15 Urine Bacteria (Auto) TRACE /HPF 03/03/20 04:15 Urine Mucus (Auto) OCC /LPF 03/03/20 04:15 Urine Ascorbic Acid NEGATIVE (NEGATIVE) 03/03/20 04:15 Urine Opiates Screen NEGATIVE 03/03/20 04:15 Urine Methadone Screen NEGATIVE 03/03/20 04:15 Ur Barbiturates Screen NEGATIVE 03/03/20 04:15 Ur Phencyclidine Scrn NEGATIVE 03/03/20 04:15 Ur Amphetamines Screen NEGATIVE 03/03/20 04:15 U Benzodiazepines Scrn UNCONFIRMED POSITIVE 03/03/20 04:15 Urine Cocaine Screen NEGATIVE 03/03/20 04:15 U Marijuana (THC) Screen NEGATIVE 03/03/20 04:15 Serum Alcohol < 10 mg/dL (NONE DETECTED) 03/03/20 00:45 HIV 1&2 Antibody NEGATIVE (NEGATIVE) 03/04/20 04:32 Influenza A (RT-PCR) NEGATIVE (NEGATIVE) 03/03/20 16:17 Influenza B (RT-PCR) NEGATIVE (NEGATIVE) 03/03/20 16:17 RSV (RT-PCR) NEGATIVE (NEGATIVE) 03/03/20 16:17 SARS-CoV-2 Rap RNA(RT-PCR) POSITIVE (NEGATIVE) 03/03/20 16:17 Impressions: Abdomen/Pelvis CT 03/03/20 00:00 IMPRESSION: 1. Severe hepatic steatosis. 2. Patchy ground-glass attenuation in the medial right lower lobe and left lung base may represent atelectasis or developing airspace disease. Findings could be seen with Coban [address] evidence of acute pancreatitis. Head CT 03/03/20 00:23 IMPRESSION: No acute intracranial findings. Chest X-Ray 03/03/20 03:59 IMPRESSION: No acute cardiopulmonary process copyright 2011 [email or web address]- All Rights Reserved Plan Plan of Treatment: - take 2nd dose of Ivermectin on Sunday - self quarantine for 14 days Stroke Is this a Stroke Patient?: No Acute Heart Failure Is this a Heart Failure Patient?: No
== END 2020-03-05 12:52 | disposition home or self-care (01) | DRG 896 ==
LOC: ER 00:13 → EH 04:07 → 5 05:25 → 3N 18:03
PROVIDERS: ADMIT Internal Medicine; ATTEND Internal Medicine
PROC: 3E0234Z Introduction of Serum, Toxoid and Vaccine into Muscle, Percutaneous Approach (ICD-10-PCS; principal; 2020-03-05)
DX: F10.239 Alcohol dependence with withdrawal, unspecified (principal); J12.81 Pneumonia due to SARS-associated coronavirus; G40.509 Epileptic seizures related to external causes, not intractable, without status epilepticus; F10.229 Alcohol dependence with intoxication, unspecified; K70.30 Alcoholic cirrhosis of liver without ascites; K76.0 Fatty (change of) liver, not elsewhere classified; F17.210 Nicotine dependence, cigarettes, uncomplicated; D69.6 Thrombocytopenia, unspecified; D72.819 Decreased white blood cell count, unspecified; F41.8 Other specified anxiety disorders; Y90.0 Blood alcohol level of less than 20 mg/100 ml; Z23 Encounter for immunization
CPT/HCPCS: 36415; 70450; 71045; 74177; 80053; 80307; 81001; 82140; 83036; 83690; 83735; 84481; 85025; 85610; 86701; 90471; 90686; 93005; 93010; 96374; 99285; 0241U; C9803; G0008; J2060; J3411; J3480; J3490